=== PATIENT | female | born 1995 | race Caucasian/White ===

== ENCOUNTER 2023-04-10 00:20 | Emergency (ER) | payer SELFPAY ==
[~2023-04-10] VITALS: Ht 175.3 cm; Wt 97.0 kg
[2023-04-10 00:31] VITALS: BP 140/90; O2SAT 99
[2023-04-10] MEDS ORDERED: TETANUS, DIPHTHERIA, PERTUSSIS VAC/PF 0.5ML (>10YR OLD) IM ONE (00:45)
[2023-04-10] MEDS ORDERED: ACETAMINOPHEN 325MG TABLET PO ONE (00:45)
[2023-04-10 02:46] LABS: HCG SCREEN NEGATIVE
[2023-04-10] MEDS ORDERED: ACET-2708 MT (09:36)
[2023-04-10] MEDS ORDERED: IBUP-2030 MT (09:36)
[2023-04-10 09:38] VITALS: PULSE 88; RESP 18; TEMP 97.8
== END 2023-04-10 09:40 | disposition home or self-care (01) ==
LOC: ER 00:20
DX: S00.83XA Contusion of other part of head, initial encounter (principal); Y08.89XA Assault by other specified means, initial encounter; Y93.89 Activity, other specified; Y92.89 Other specified places as the place of occurrence of the external cause; Y99.8 Other external cause status
CPT/HCPCS: 70486; 73130; 81025; 84703; 90471; 90715; 99285